=== PATIENT | male | born 1945 | race Caucasian/White ===

== ENCOUNTER 2021-05-24 23:37 | Emergency (ER) | payer MEDICARE ==
[~2021-05-24] VITALS: Ht 172.7 cm; Wt 79.4 kg
[2021-05-24 23:43] VITALS: BP 136/78
--- NOTE | 2021-05-25 01:53 | NUR ---
BIBA TO ER BED 12
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
[2021-05-25 03:32] LABS: HEMATOCRIT 38.1 % (36-52); HEMOGLOBIN 12.6 g/dL (12.0-18.0); MEAN CORPUSCULAR HEMOGLOBIN 31 pg (27-31); MEAN CORPUSCULAR HGB CONC 33 g/dL (33-37); PLATELET COUNT (AUTO) 162 K/uL (140-450); RED BLOOD CELL COUNT(AUTO) 4.05 MIL/uL (4.20-6.10); WHITE BLOOD COUNT (AUTO) 10.2 K/uL (4.8-10.8)
[2021-05-25 03:45] LABS: EOSINOPHILS % (MANUAL) 2 % (0-4); LYMPHOCYTES % (MANUAL) 20 % (20-46); MONOCYTES % (MANUAL) 5 % (5-12)
[2021-05-25 03:48] LABS: ALBUMIN 3.5 g/dL (3.4-5.0); ANION GAP 11.1 (8-16); ASPARTATE AMINOTRANSFERASE 26 U/L (15-37); CARBON DIOXIDE 28.5 mmol/L (21-32); CHLORIDE 109 mmol/L (98-107); CREATININE 0.8 mg/dL (0.6-1.3); GLUCOSE 132 mg/dL (74-106); POTASSIUM 3.6 mmol/L (3.5-5.1); SODIUM SERUM 145 mmol/L (136-145); TOTAL BILIRUBIN 0.5 mg/dL (0.0-1.0); UREA NITROGEN, BLOOD 22 mg/dL (7-18)
[2021-05-25] MEDS ORDERED: OLANZapine 10 MG VIAL IM ONE ×4 (04:00→05:36)
--- NOTE | 2021-05-25 04:40 | NUR ---
Patient appears to be resting comfortably in bed. Vital Signs within normal limits. Respirations even and unlabored.
--- NOTE | 2021-05-25 06:51 | NUR ---
MOVED PT TO BED 11
--- NOTE | 2021-05-25 07:34 | NUR ---
GIVEN REPORT TO IBETH DURAN. TRANSFER OF CARE AT THIS TIME
--- NOTE | 2021-05-25 07:34 | NUR ---
RECEIVED REPORT FROM RENEE VELASQUEZ. TRANSFER OF CARE AT THIS TIME.
--- NOTE | 2021-05-25 07:57 | NUR ---
PT SLEEPING, VISIBLE EQUAL RISE AND FALL OF CHEST, VSS, WILL CONTINUE TO MONITOR.
--- NOTE | 2021-05-25 09:42 | NUR ---
PT NEPHEW,POWER OF FWS FACULTY ASSISTANT WITH PT AT BEDSIDE.
--- NOTE | 2021-05-25 09:55 | NUR ---
DR. HOFFMANN WITH PT AND PT NEPHEW, POWER OF ELECTROLYSIS ENGINEER FOR UPDATES. PER DR. HOFFMANN NO UA AT THIS TIME, POSSIBLE DC.
--- NOTE | 2021-05-25 10:43 | NUR ---
PT TAKEN TO CT VIA [facility].
--- NOTE | 2021-05-25 10:55 | NUR ---
PT TAKEN TO ER BED 11 VIA [facility].
[2021-05-25] MEDS ORDERED: LABETALOL 100 MG/20 ML VIAL IVP ONE (11:00)
[2021-05-25] MEDS ORDERED: NACL 0.9% 500 ML IV ONE (11:00)
--- NOTE | 2021-05-25 11:02 | NUR ---
PER MD PT TO BE ADMITTED POSSIBLE TRANSFER TO [facility].
--- NOTE | 2021-05-25 11:14 | NUR ---
CHANGED PT INTO GOWN, CLEAN DIAPER, BELONGINGS PLACED IN BAG CALLED SECURITY. PT UA COLLECTED WALKED TO LAB. PT REPOSITIONED HOB ELEVATED, PT CALM COPPERATIVE. WILL CONTINUE TO MONITOR.
[2021-05-25 11:34] LABS: APPEARANCE,URINE CLEAR (CLEAR); BILIRUBIN,URINE NEGATIVE (NEGATIVE); BLOOD, URINE 2+ (NEGATIVE); COLOR,URINE YELLOW (YELLOW); LEUKOCYTE ESTERASE ,URINE NEGATIVE (NEGATIVE); NITRITE, URINE NEGATIVE (NEGATIVE); UGLUCOSE NEGATIVE (NEGATIVE)
[2021-05-25 12:15] LABS: WBC,URINE 0-5 /HPF (0-5)
--- NOTE | 2021-05-25 12:30 | NUR ---
PT AGITATED, RESTLESS, YELLING, GOWN RMOVED BY PT. MADE AWARE.
[2021-05-25] MEDS ORDERED: LORazepam 2 MG/ML VIAL IVP ONE (12:35)
[2021-05-25] MEDS ORDERED: LORazepam 2 MG/ML VIAL ONE (12:37)
--- NOTE | 2021-05-25 12:56 | NUR ---
PT SLEEPING, VISIBLE EQUAL RISE AND FALL OF CHEST, VSS, WILL CONTINUE TO MONITOR.
--- NOTE | 2021-05-25 13:21 | NUR ---
SPOKE WITH CHRISTINA FROM [facility], FOR PT UPDATES. ASKING FOR 5150 HOLD AND PT CHART TO BE FILED TO [phone]. NEEDS TOX SCREEN AND BLOOD ALCOHOL LEVEL ORDERED BY . CALL BACK WITH RESULTS AT [phone] FOR BEDFINDER PROCESS TO START.
--- NOTE | 2021-05-25 14:05 | NUR ---
FAMILY AT BEDSIDE. VSS, PT STABLE, NSR W/O ECT AT THIS TIME.
--- NOTE | 2021-05-25 14:40 | NUR ---
PT SLEEPING, VISIBLE EQUAL RISE AND FALL OF CHEST, VSS, WILL CONTINUE TO MONITOR.
[2021-05-25 15:33] LABS: BARBITURATE, URINE NEGATIVE ng/ml (NEG <=200); BENZODIAZEPINE, URINE NEGATIVE ng/mL (NEG <=200); CANNABINOID, URINE NEGATIVE ng/mL (NEG <=50); COCAINE, URINE NEGATIVE ng/mL (NEG <=300); OPIATE, URINE POSITIVE ng/mL (NEG <=2000); PHENCYCLIDINE SCREEN,URINE NEGATIVE ng/mL (NEG <=25)
--- NOTE | 2021-05-25 16:09 | NUR ---
SPOKE WITH PATRICK WITH TOX SCREEN AND BLOOD ALCOHOL LEVEL FOR PENDING TX TO [place].
--- NOTE | 2021-05-25 17:05 | NUR ---
PT SLEEPING, VISIBLE EQUAL RISE AND FALL OF CHEST, VSS, WILL CONTINUE TO MONITOR.
--- NOTE | 2021-05-25 18:53 | NUR ---
PT SLEEPING, VISIBLE EQUAL RISE AND FALL OF CHEST, VSS, WILL CONTINUE TO MONITOR.
--- NOTE | 2021-05-25 19:14 | NUR ---
GAVE REPORT TO RENEE REAL. TRANSFER OF CARE AT THIS TIME.
--- NOTE | 2021-05-25 19:30 | NUR ---
RESTING IN BED WITH EYES CLOSED. RESPIRATIONS REGULAR AND UNLABORED
--- NOTE | 2021-05-25 23:43 | NUR ---
AWAKE, ASSISTED WITH POSITIONING. SANDWICH GIVEN
[2021-05-26] MEDS ORDERED: LORazepam 2 MG/ML VIAL ONE (02:19)
[2021-05-26] MEDS ORDERED: LORazepam 2 MG/ML VIAL IVP ONE ×3 (02:20→13:40)
--- NOTE | 2021-05-26 02:30 | NUR ---
AWAKE, AND RESTLESS. INCONTINENT OF URINE. LINENS CHANGED, REPOSITIONED.
--- NOTE | 2021-05-26 04:00 | NUR ---
REPOSITIONED FOR COMFORT, RETURNS TO RESTING WITH EYES CLOSED
--- NOTE | 2021-05-26 07:00 | NUR ---
CONTINUES TO REST COMFORTABLY WITH EYES CLOSED. RESPIRATIONS REGULAR AND UNLABORED. REPOSITIONED
[2021-05-26] MEDS ORDERED: LABETALOL 100 MG/20 ML VIAL IVP ONE ×2 (12:50→13:40)
--- NOTE | 2021-05-26 14:10 | NUR ---
[facility] AT BEDSIDE TO [facility] PT. [facility] UNIT: 225
[2021-05-26] MEDS ORDERED: NITROGLYCERIN 2% 1 GM PKT TP ONE (14:30)
[2021-05-26] MEDS ORDERED: DIVA125E1 (14:46)
[2021-05-26] MEDS ORDERED: CARB1TAB37 PO (14:46)
[2021-05-26] MEDS ORDERED: ATOR20TA PO (14:46)
--- NOTE | 2021-05-26 14:54 | NUR ---
INITIAL BP WHEN ARM ARRIVED WAS 209/67, NITRO OINT WAS GIVEN ON L CHEST. SPOKE WITH REINIER DUARN NOTIFIED HER ABOUT NEW READING BP: 146/73 PULSE:66 ACCORDING TO RN, STATES SHE SPOKE WITH COMPRESSOR ENGINEER AND REQUESTED 2 BP READINGS BELOW 150 SYSTOLIC BEFORE TRANSFER. SHE NOTIFIED ME THAT ATTENDING WILL BE NOTIFIED OF EVENT.
[2021-05-26] MEDS ORDERED: CLONIDINE HYDROCHLORIDE 0.1 MG TAB PO ONE (15:20)
--- NOTE | 2021-05-26 15:53 | NUR ---
VITALS WERE FAXED TO [phone].
--- NOTE | 2021-05-26 17:14 | NUR ---
[facility] ARRIVED AT FACILITY, REPORT WAS GIVEN AND NITRO CREAM REMOVED AND CLEANED OFF PT L SIDE.
--- NOTE | 2021-05-26 17:15 | NUR ---
Patient to be transferred to [email or web address]. Is being transferred due to PSYCHOSIS. Receiving facility has accepting physician and available space. ER physician has signed transfer form. Patient or responsible republican has agreed to transfer and signed form. Patient belongings inventoried and will be sent with patient. Copy of nursing notes, lab reports, EKG, Physicians Orders and X-rays to be sent with patient. Report called to REINIER DURAN at receiving facility. S ambulance service has been called for transfer. ETA is 1.5 HR TO FACILITY.
[2021-05-26 17:16] VITALS: BP 131/67
== END 2021-05-26 17:15 ==
LOC: MED 23:37
DX: F91.8 Other conduct disorders (principal); F03.90 Unspecified dementia, unspecified severity, without behavioral disturbance, psychotic disturbance, mood disturbance, and anxiety; Z20.822 Contact with and (suspected) exposure to COVID-19
CPT/HCPCS: 36415; 70450; 71045; 80053; 80305; 81001; 84484; 85025; 87426; 93005; 96361; 96372; 96374; 96375; 96376; 99285; G0482; J2060; J3490; J7030; U0003